=== PATIENT | female | born 1940 | race Caucasian/White ===

== ENCOUNTER → 2016-06-18 | Outpatient (CLI) | payer MEDICARE, OTHER ==
[2016-06-18 16:27] LABS: BASOPHILS % (AUTO) 0.5 % (0-2); EOSINOPHILS # (AUTO) 0.1 T/MM3 (0-0.5); EOSINOPHILS % (AUTO) 1.4 % (0-4); HGB - HEMOGLOBIN 14.4 GM/DL (12-16); IMMATURE GRANULOCYTE # (AUTO) 0.01 T/MM3 (0.00-0.03); IMMATURE GRANULOCYTE % (AUTO) 0.2 % (0.0-0.5); LYMPHOCYTES % (AUTO) 31.9 % (23-45); MEAN CORPUSCULAR HGB 30.1 UUG (26-34); MEAN CORPUSCULAR HGB CONC(MCHC 33.5 GM/DL (31-37); MEAN PLATELET VOLUME 9.8 UM3 (9.4-12.4); MONOCYTES # (AUTO) 0.5 T/MM3 (0-0.8); MONOCYTES % (AUTO) 7.7 % (0-9.0); NEUTROPHILS #(AUTO)-ABSOLUTE 3.7 T/MM3 (1.8-7.7); NEUTROPHILS % (AUTO) 58.3 % (33-66); RED BLOOD COUNT 4.78 M/MM3 (4.00-5.20); WBC - WHITE BLOOD COUNT 6.4 T/MM3 (4.5-11.0)
[2016-06-18 16:35] LABS: ALBUMIN 4.4 G/DL (3.5-5.0); ALBUMIN/GLOBULIN RATIO 1.7 RATIO (1.1-2.2); ALKALINE PHOSPHATASE 105 U/L (38-126); ALT (SGPT) 29 U/L (9-52); ANION GAP 14 MEQ/L (5-15); AST (SGOT) 28 U/L (14-36); BUN/CREATININE RATIO 16 RATIO (6-26); CALCIUM 9.7 MG/DL (8.4-10.2); CHLORIDE 106 MEQ/L (98-107); CO2 - CARBON DIOXIDE 28 MEQ/L (22-30); CREATININE 1.1 MG/DL (0.7-1.2); GLOMERULAR FILTRATION RATE 49; GLUCOSE 98 MG/DL (65-110); POTASSIUM 4.2 MEQ/L (3.6-5); SODIUM 148 MEQ/L (134-144)
== END ==
LOC: LAB 16:02
PROVIDERS: ATTEND Surgery Plastic and Reconstructive Surgery
DX: Z01.818 Encounter for other preprocedural examination (principal)
CPT/HCPCS: 36415; 80053; 85025

== ENCOUNTER 2016-06-26 09:11 | Day surgery (SDC) | payer MEDICARE, OTHER ==
[~2016-06-26] VITALS: Ht 152.4 cm; Wt 68.4 kg
[2016-06-26] VITALS (15 sets, daily range): BP systolic 111–149; BP diastolic 58–86; PULSE 75–89; RESP 15–26; TEMP 98–98.3; O2SAT 92–97; Ht 152.4 cm; Wt 68.4 kg
[~2016-06-26 09:11] MED LIST: CEFAZOLIN 1 GRAM INJECTION IV ONE; FENTANYL 100mcg/2ml INJECTION IV PRN; LIDOCAINE 1%/EPI 1:100,000 20ml MDV ONE; LR 1,000 ML IV SCH; MIDAZOLAM 5mg/5ml INJECTION IV PRN
--- NOTE | 2016-06-26 09:37 | ANESPREOP ---
Anesthesia Record Date and Time DATE: 06/26/16 TIME: 09:36 Proposed Surgical Procedure EXC. SCC RT. DORSAL HAND Allergies: Coded Allergies: No Known Allergies (Unverified , 06/25/16) Ht/Wt/BMI Height: 5 ' 0.00 " Weight: 68.400 kg BMI: 29.5 kg/m2 Vital Signs Date Time Temp Pulse Resp B/P Pulse Ox O2 Delivery O2 Flow Rate FiO2 06/26/16 09:26 98.0 82 15 149/86 96 Room Air Medications Inpatient Medications Current Medications Medications (Trade) Dose Ordered Sig/Kiersten Start Time Stop Time Status Last Admin Dose Admin Lactated Ringer's (Lactated Ringers) 1,000 ml @ 50 mls/hr Q20H 06/26/16 07:00 Midazolam HCl (Versed) VERSED 0.5-3MG IV PUSH EV... Q10MIN PRN 06/26/16 07:00 Fentanyl (Fentanyl) FENTANYL 25-50MCG IV P... 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 smoked today?: No Use Chewing Tobacco?: No Substance Use Type: does not use Alcohol Intake: none HX of Last Menstrual Period: HYST. Past Surgical History Orthopedic Surgeries: Yes - L. NENISCAL REPAIR Abdominal Surgeries: Genitourinary Surgeries: Cardiac Surgeries: Endocrine Surgeries: Reproductive Surgeries: Yes - HYST. 2013 Neurological Surgeries: Ear Surgeries: Nose Surgeries: Throat Surgeries: Other Surgeries: Yes - MEGAN. CAT. Anesthesia Adverse Reactions: FOUND none Family Hx of Anesthesia Advers: none Hx of Motion Sickness: No Physical Exam Respiratory: Lungs clear Cardiovascular: FOUND Regular rate, rhythm Airway Assessment Mallampati Score: II TMD: 3 Fingerbreadths Neck Extension: Good Teeth: Upper Dentures, Partial Lower Dentures (left at home) Overall Assessment: No Airway Concerns ASA: 2 Plan Anesthesia Plan: MAC Discussion Discussed risks/options/alternatives of anesthesia and questions answered. Patient consents. Nursing pain assessment noted. Attestation Statement Prior to the delivery of any anesthetic medication, I examined the patient, developed the plan, obtained the patient's consent and discussed the risk and benefits of the procedure with the patient/guardian. JEET SHAW CRNA June 26, 2016 09:37
--- NOTE | 2016-06-26 10:55 | NUR ---
MOHS EXCISION PT HERE FOR MOHS EXCISION OF SCC OF RIGHT DORSAL HAND. PRIOR TO PROCEDURE PT WAS INTERVIEWED BY DERMATOLOGIST/BLOOD SPLATTER ANALYST AND DR ARELLANO (IN ROOM AT 1040) PT WAS GIVEN A/B IV ORDERED BY Yessica LIM RN AT 1044. SEDATION ALSO GIVEN BY Yessica LIM RN TIME OUT WAS PERFORMED BY SHELLEY HOPSON AT 1043. PT WAS PREPPED AND DRAPED BY DR ARELLANO AND ASST BY Leydi KNIGHT RN START TIME AT 1048 WITH LOCAL INJECTION OF LIDOCAINE 1% W/ EPI TO RIGHT HAND AND RIGHT WRIST (TOTAL OF 5 CC OF LOCAL USED) SPECIMEN SENT DIRECTLY TO PATHOLOGY FOR FROZEN SPECIMEN. [id number] LABELED #1 MOHS EXCISION OF SCC OF RIGHT DORSAL HAND. PT TOLERATED PROCEDURE WELL. 2X2 DRESSING AT END OF PROCEDURE.
[2016-06-26] MEDS ORDERED: MIDAZOLAM 2mg/2ml INJECTION ONE (12:06)
[2016-06-26] MEDS ORDERED: CEPH-583 PO (12:34)
[2016-06-26] MEDS ORDERED: ACET1TAB12 PO (12:34)
--- NOTE | 2016-06-26 12:38 | ANESPO ---
Post-Op Note Date 06/26/16 Time: 12:37 Status Pt Participated in Evaluation: Pt participated in person Vital Signs Date Time Temp Pulse Resp B/P Pulse Ox O2 Delivery O2 Flow Rate FiO2 06/26/16 11:45 75 23 131/74 92 Room Air 06/26/16 09:26 98.0 Respiratory Function: Airway patent Cardiovascular Function: Regular pulse Mental Status: Alert/oriented Pain Level Intensity: 0 Hydration: Taking po fluids Complications during Recovery None apparent Follow-Up Instructions Instructions Per Surgeon JEET SHAW CRNA June 26, 2016 12:38
--- NOTE | 2016-06-26 12:41 | PDPROCED ---
Procedure Note Date 06/26/16 Procedure Name Excision SCC right dorsal hand with frozen section guidance of margins and complex closure: Lesion size 1.4 cm, excision 2.3 cm, final defect 2.8 cm Biopsy of lesion right dorsal wrist Procedure Detail Preop dx: SCC right dorsal hand; possible malignancy right dorsal wrist Postop dx: SCC right dorsal hand; AK right dorsal wrist Anesthesia: MAC EBL: Less than 10 ml Case: Clean Complications: None ELVIS ARELLANO MD June 26, 2016 12:41
--- NOTE | 2016-06-26 22:16 | OPNOTEF ---
DATE OF SURGERY 06/26/[address] Vazquez PREOPERATIVE DIAGNOSIS Squamous cell carcinoma, right dorsal hand - possible malignancy right dorsal wrist. 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 ANESTHESIA MAC. PROCEDURE Excision of squamous cell carcinoma, right dorsal hand, with frozen-section guidance of margins and complex closure. Lesion size 1.4 cm, excision 2.3 cm, final defect 2.8 cm. Biopsy of lesion right dorsal wrist. INDICATIONS The patient is a 75-year-old woman who was referred by her PCP, Dr. 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 She had seen her physician on 06/03/2016 at which time a shave biopsy was done. Pathology revealed invasive, well-differentiated squamous cell carcinoma with tumor at the margins. The patient denied any bleeding of the lesion. On exam, she had an erythematous and healing biopsy site of her right dorsal hand. Of note, the morning of surgery the patient asked for evaluation and management of another erythematous lesion of her right dorsal wrist. She denied any bleeding at this lesion but stated that the hand carcinoma had initially looked like the wrist lesion. On exam, she had an erythematous lesion measuring 1.4 cm of the right dorsal hand and a second erythematous lesion of the right dorsal wrist. In detailed discussion with the patient preoperatively, the risks, benefits and alternatives of excision of the right dorsal hand lesion and biopsy of the wrist lesion were reviewed including, but not limited to, bleeding, infection, poor or keloid scarring, partial and/or complete loss of the flap and/or graft, residual and/or recurrent disease. The patient understood and wished to proceed. PROCEDURE The patient was marked preoperatively and then, after suitable IV sedation, the right hand and arm were prepped and draped in the usual sterile manner. Of note, she received 1 g of Ancef preoperatively and wore sequential stockings throughout. The involved areas were then infiltrated with 1% lidocaine with epinephrine. First, a snip biopsy was performed of the right wrist lesion and handed off as a specimen. Next, the right dorsal hand lesion was excised and handed off as a specimen with the tag at the 12 o'clock margin. Subsequent pathologic evaluation revealed squamous cell carcinoma with clear margins for the hand lesion and actinic keratosis for the right dorsal wrist lesion. The patient was then brought to the operating room and again prepped and draped in the usual sterile manner. The dorsal hand wound was widely undermined and dog ears were removed. It was then closed in two layers using interrupted buried sutures of 4-0 Monocryl and then interrupted 5-0 nylon. The right dorsal wrist incision was closed in one layer using interrupted 6-0 nylon. Benzoin and Steri-Strips were applied as well as a dry sterile dressing and Mefix tape. Kerlix and Coban were likewise placed. The patient was then brought to the recovery room in stable condition. Estimated blood loss was less than10 mL. The case was clean. Specimens: Squamous cell carcinoma of the right dorsal hand and actinic keratosis of right dorsal wrist. [facility]
== END 2016-06-26 13:20 | disposition home or self-care (01) ==
LOC: SCU 09:11
PROVIDERS: ATTEND Surgery Plastic and Reconstructive Surgery
DX: C44.622 Squamous cell carcinoma of skin of right upper limb, including shoulder (principal); L57.0 Actinic keratosis; X32.XXXA Exposure to sunlight, initial encounter
CPT/HCPCS: 11100; 11623; 13132; 88305; 88331; 88332; J0690; J2250; J3010; J7120